=== PATIENT | female | born 1970 ===

== ENCOUNTER 2018-04-02 06:49 | Day surgery (SDC) | payer OTHER ==
[~2018-04-02 06:49] MED LIST: MAGESTROL PO; TANDEM DUAL AC106 MG PO
[2018-04-02] MEDS ORDERED: EC-NAPROSYN375 MG PO (14:14)
== END 2018-04-02 16:20 | disposition home or self-care (01) ==
LOC: CIR.AMB 06:49
DX: N93.8 Other specified abnormal uterine and vaginal bleeding (principal)

== ENCOUNTER 2018-10-15 11:00 | Inpatient (IN) | payer OTHER ==
[~2018-10-15] VITALS: Ht 154.9 cm; Wt 75.3 kg
[~2018-10-15 11:00] MED LIST changes: +EC-NAPROSYN375 MG PO
[2018-10-23] MEDS ORDERED: MEGESTROL ACETA40 MG PO (08:16)
[2018-10-23] MEDS ORDERED: COLACE100 MG PO (09:27)
[2018-10-23] MEDS ORDERED: CODE1TAB37 PO (09:29)
== END 2018-10-23 10:37 | disposition home or self-care (01) | DRG 743 ==
LOC: O/R 11:00 → RECOVERY 10-22 11:00 → O/R 10-22 11:00 → OB/GYN 10-22 11:09 → RECOVERY 10-22 13:15 → OB/GYN 10-23 10:37
PROVIDERS: ADMIT Obstetrics & Gynecology
PROC: 0UT74ZZ Resection of Bilateral Fallopian Tubes, Percutaneous Endoscopic Approach (ICD-10-PCS; 2018-10-22)
PROC: 0USG7ZZ Reposition Vagina, Via Natural or Artificial Opening (ICD-10-PCS; 2018-10-22)
PROC: 0UT94ZZ Resection of Uterus, Percutaneous Endoscopic Approach (ICD-10-PCS; principal; 2018-10-22 13:15)
DX: D25.1 Intramural leiomyoma of uterus (principal); D25.2 Subserosal leiomyoma of uterus; N72 Inflammatory disease of cervix uteri; N92.0 Excessive and frequent menstruation with regular cycle; N92.6 Irregular menstruation, unspecified; N81.11 Cystocele, midline; D50.0 Iron deficiency anemia secondary to blood loss (chronic)

== ENCOUNTER 2021-07-11 08:47 | Outpatient (CLI) | payer OTHER ==
[~2021-07-11 08:47] MED LIST changes: +CODE1TAB37 PO; +COLACE100 MG PO; +MEGESTROL ACETA40 MG PO
== END 2021-07-11 08:56 | disposition home or self-care (01) ==
LOC: RX STUDY 08:47
PROVIDERS: ATTEND Internal Medicine Gastroenterology
DX: K29.00 Acute gastritis without bleeding (principal); K36 Other appendicitis

== ENCOUNTER 2021-07-18 08:39 | Outpatient (CLI) | payer OTHER | END 2021-07-18 08:41 | disposition home or self-care (01) | LOC: RAD 08:39 | PROVIDERS: ATTEND Internal Medicine Gastroenterology | DX: K56.600 Partial intestinal obstruction, unspecified as to cause (principal); K56.609 Unspecified intestinal obstruction, unspecified as to partial versus complete obstruction; K59.00 Constipation, unspecified; C18.9 Malignant neoplasm of colon, unspecified; K57.32 Diverticulitis of large intestine without perforation or abscess without bleeding; I11.9 Hypertensive heart disease without heart failure; R06.02 Shortness of breath; M54.6 Pain in thoracic spine ==

== ENCOUNTER 2021-07-21 09:31 | Emergency (ER) | payer OTHER ==
[~2021-07-21] VITALS: Ht 154.9 cm; Wt 71.7 kg
[2021-07-21] MEDS ORDERED: IRBESARTAN-HCT1 EACH PO (09:40)
== END 2021-07-21 11:01 | disposition home or self-care (01) ==
LOC: ER 09:31
DX: M54.9 Dorsalgia, unspecified (principal); I10 Essential (primary) hypertension

== ENCOUNTER → 2021-08-31 | Outpatient (CLI) | payer OTHER ==
[~2021-08-31] MED LIST changes: +IRBESARTAN-HCT1 EACH PO
== END | disposition home or self-care (01) ==
LOC: NUCLEAR 11:00
PROVIDERS: ATTEND Specialist
DX: I12.9 Hypertensive chronic kidney disease with stage 1 through stage 4 chronic kidney disease, or unspecified chronic kidney disease (principal)